=== PATIENT | male | born 1965 | race African-American/Black ===

== ENCOUNTER 2020-08-22 07:25 | Day surgery (SDC) | payer MEDICARE, OTHER ==
--- NOTE | 2020-08-21 08:18 | NUR ---
ATTEMPTED TO CALL PT TO CONFIRM TOMORROW APPT AND ADDRESS HIS SHELLFISH ALLERGY - PT HAS VOICEMAIL THAT HAS NOT BEEN SET UP AT THIS TIME. WILL ATTEMPT TO CONTACT LATER TODAY. CALLED SCHEDULING OFFICE (DR. FRIEDMAN) TO LET THEM KNOW THAT NEED TO PRE-MEDICATE AND LEFT MESSAGE FOR CHARGE NURSE TO CALL ME.
--- NOTE | 2020-08-21 11:04 | NUR ---
1030 - SPOKE WITH SUE TO CONFIRM APPT FOR TOMORROW: CONFIRMED NPO AFTER MIDNIGHT, CONFIRMED APARTMENT LEASING MANAGER, CONFIRMED HE STOPPED HIS ASA ON FRIDAY. PT STATES HE HAS NEVER HAD CONTRAST BEFORE, WILL NEED TO BE PRE-MEDICATED. 1102 - CALLED DR FRIEDMAN'S OFFICE AGAIN AND NURSE FOR PT COULDN'T TALK AT THIS TIME. LEFT MY NAME AND NUMBER TO CALL ME BACK.
--- NOTE | 2020-08-21 11:40 | NUR ---
SPOKE WITH OANH AT [facility] - SHE CALLED IN MEDICATION FOR PT TO PRE-MEDICATE FOR TOMORROW'S PROCEDURE.
[~2020-08-22] VITALS: Ht 180.3 cm; Wt 80.9 kg
--- NOTE | ~2020-08-22 | HEMODYNAMI ---
PATIENT:SUE JANE MEDICAL RECORD: [id number] : 63 LOCATION:[facility] ADMISSION DATE: 08/22/20 Generatedon:111:27 Patient name: SUE JANE Patient #: [id number] SSN: DO B: 1965 Date of study: 08/22/2020 Page: Of Hemodynamic Procedure Report Patient Data Patient Demographics Procedure consent was obtained First Name: SUE Gender: Male Last Name: BUCK : 1965 Middle Initial: ANGELY Age: 54 year(s) Patient #: [id number] Race: Black Additional ID: [id number] Contact details [address]: [address] [place] [address] [address] State: [place] City: [place] Zip code: [address] Admission Admission Data Admission Date: 08/22/2020 Admission Time: 7:25 Procedure Procedure Types Cath Procedure Peripheral Cath Diagnostic Procedure Miscellaneous Procedure Description Procedure Date Procedure Date: 08/22/2020 Procedure Start Time: 10:25 Procedure Staff Name Function Sam Live MD Performing Physician Srinivas Reyes RT Monitor MELVIN COLLIER RT Scrub Stacey Potts RN Nurse Carolee Arevalo RN Nurse Procedure Data Cath Procedure Fluoroscopy Diagnostic fluoroscopy Total fluoroscopy Time: 8.9 time: 8.9 min min Diagnostic fluoroscopy Total fluoroscopy dose: 159 dose: 159 mGy mGy Contrast Material Contrast Material Type Amount (ml) Isovue 300 75 Procedure Medications Medication Administration Route Dosage Lidocaine 1% added to field 20 Heparin Flush Bag added to field 3 bags (1000units/500ml NS) Fentanyl I.V. 50 mcg Versed I.V. 1 mg Heparin Bolus I.V. 3000 units Fentanyl I.V. 25 mcg Versed I.V. 0.5 mg Hemodynamics Rest Heart Rate: 72 (bpm) Snapshots Pre Cath Intra NCS Post Cath Vital Signs Time Heart Resp SPO2 etCO2 NIBP (mmHg) Rhythm Pain Sedation Rate (ipm) (%) (mmHg) Status Level (bpm) 9:54:29 69 29 99 26.7 184/94(156) NSR 0 (11) 10(A) , No pain 9:58:53 70 23 100 23.7 177/99(154) NSR 0 (11) 10(A) , No pain 10:03:16 69 33 100 23 181/94(155) NSR 0 (11) 10(A) , No pain 10:07:40 70 26 100 28.9 187/96(150) NSR 0 (11) 10(A) , No pain 10:12:06 71 27 100 28.2 186/98(161) NSR 0 (11) 10(A) , No pain 10:17:05 68 26 100 25.2 Measuring NSR 0 (11) 10(A) , No pain 10:17:26 76 26 100 26 190/102(162) NSR 0 (11) 10(A) , No pain 10:21:54 70 12 100 32.6 195/108(153) NSR 0 (11) 10(A) , No pain 10:26:25 70 19 100 32.6 192/105(168) NSR 0 (11) 10(A) , No pain 10:30:53 68 15 100 33.4 180/96(154) NSR 0 (11) 8(A) , No pain 10:35:17 68 19 100 27.4 178/92(134) NSR 0 (11) 8(A) , No pain 10:39:43 67 17 100 34.8 169/82(147) NSR 0 (11) 8(A) , No pain 10:44:01 66 23 100 34.8 174/95(146) NSR 0 (11) 8(A) , No pain 10:48:21 66 15 100 34.1 169/97(161) NSR 0 (11) 8(A) , No pain 10:52:41 67 20 100 34.1 174/93(156) NSR 0 (11) 8(A) , No pain 10:57:41 66 17 100 34.1 Measuring NSR 0 (11) 8(A) , No pain 10:57:47 69 14 100 34.1 169/91(140) NSR 0 (11) 8(A) , No pain 11:02:09 69 20 100 34.1 172/83(143) NSR 0 (11) 8(A) , No pain 11:07:08 67 15 100 32.6 Measuring NSR 0 (11) 8(A) , No pain 11:07:12 68 15 100 32.6 172/92(145) NSR 0 (11) 8(A) , No pain 11:11:32 67 15 100 33.4 174/97(149) NSR 0 (11) 8(A) , No pain 11:15:52 66 13 100 34.1 183/94(148) NSR 0 (11) 8(A) , No pain 11:20:19 65 12 100 35.6 171/86(137) NSR 0 (11) 8(A) , No pain 11:24:37 65 20 100 34.1 169/90(141) NSR 0 (11) 8(A) , No pain Medications Time Medication Route Dose Verified Delivered Reason Notes Effec tiveness by by 10:12:17 Lidocaine 1% added 20ml Sam Vargas used for to vial Calos Live MD procedure field MELGAR 10:12:46 Heparin Flush added 3 Sam Vargas used for Bag to bags Calos Live MD procedure (1000units/500ml field MELGAR NS) 10:28:15 Fentanyl I.V. 50 Sam Ibarra for mcg Katlyn Live MD, RN 10:28:26 Versed I.V. 1 mg Sam Ibarra for Katlyn Live MD, RN 10:52:11 Heparin Bolus I.V. 3000 Sam Ibarra used for units Katlyn Live MD RN 11:10:12 Fentanyl I.V. 25 Sam Ibarra for mcg Katlyn Live MD, RN 11:10:22 Versed I.V. 0.5 Sam Ibarra for mg Katlyn Live MD metal expediter Log Time Note 9:48:19 Stacey Potts RN sent for patient. Start room use. 9:48:30 Time tracking: Regular hours (M-F 7:00 - 5:00) 9:48:34 Plan of Care:Hemodynamics will remain stable., Cardiac rhythm will remain stable., Comfort level will be maintained., Respiratory function will remain adequate., Patient/ family verbilizes understanding of procedure., Procedure tolerated without complication., Recovers from procedure without complications.. 9:48:40 Use device set IR Diagnostic 9:48:42 Bag Decanter (2002S) opened to sterile field. 9:48:42 Sterile Angiographic Pack opened to sterile field. 9:48:43 Tegaderm 4 x 4 (1626W) opened to sterile field. 9:48:54 Patient received from Outpatients to IR Alert and oriented. Tansferred to table in Supine position. 9:48:58 Signed procedure consent form obtained from patient. 9:48:59 Correct patient and procedure confirmed by team. 9:50:14 ECG and BP/O2 sat monitors applied to patient. 9:50:15 Full Disclosure recording started 9:50:15 - 9:50:17 Pre-procedure instructions explained to patient. 9:50:18 Pre-op teaching completed and patient verbalized understanding. 9:50:22 H&P Date Dictated: 08/22/2020 H&P Addendum completed by physician on day of procedure. (MUST COMPLETE FOR ALL OUTPATIENTS). 9:50:25 Family unavailable. 9:50:29 Patient NPO since Midnight. 9:50:58 Is patient on blood thinner?No 9:51:05 Patient diabetic? Yes. 9:51:08 If diabetic: On Metformin? No 9:51:14 - 9:51:14 ----Pre-sedation anethsthesia assessment.---- 9:51:23 Previous problem with sedation/anesthesia? No ? 9:51:25 Snore? No 9:51:27 Sleep apnea? No 9:51:29 Deviated septum? No 9:51:30 Opens mouth fully? Yes 9:51:31 Sticks out tongue? Yes 9:51:33 Airway obstruction? No ? 9:51:36 Dentures? No ? 9:51:45 IV patent on arrival in right forearm with 0.9% NaCl at [facility]. 9:51:48 Alarms reviewed by R. N. 9:51:49 Sharps counted by scrub and verified by R.N. 9:51:55 Left Arm area was prepped with chlora-prep and draped in sterile fashio n 9:53:19 Vital chart was started 9:54:29 Baseline sample Acquired. 10:12:17 Lidocaine 1% 20ml vial added to field was administered by Sam Live MD; used for procedure; Verbal order read back and verified. 10:12:46 Heparin Flush Bag (1000units/500ml NS) 3 bags added to field was administered by Sam Live MD; used for procedure; Verbal order read back and verified. 10:24:45 Physician arrived 10::45 --------ALL STOP TIME OUT------ 10:24:46 Final Timeout: patient, procedure, and site verified with staff and physician. All members of the team are in agreement. 10:24:50 Right Arm site verified by team. 10:24:55 Fire Safety Assessment: A--An alcohol-based skin anteseptic being used preoperatively., C--Open oxygen or nitrous oxide is being used. 10:25:04 Sedation plan: IV Moderate Sedation Medication:Versed, Fentanyl 10:25:22 Procedure started. 10:25:28 Local anesthetic to right arm with Lidocaine 1% by Sam Live MD.INITIAL ACCESS ONLY 10:25:31 GLIDE CATHETER 5FR ANGLED 65cm (CG507) opened to sterile field. 10:25:31 DOUBLE ENDED GUIEDWIRE DOC 145CM (I86665) opened to sterile field. 10:28:15 Fentanyl 50 mcg I.V. was administered by Stacey Potts RN; for sedation; Verbal order read back and verified. 10:28:26 Versed 1 mg I.V. was administered by Stacey Potts RN; for sedation; Verbal order read back and verified. 10:35:49 SHEATH 5FR [place] (TVW282) opened to sterile field. 10:35:50 Micropuncture VSI 4FR kit opened to sterile field. 10:36:25 GLIDE WIRE ANGLE 180cm (PB6971) opened to sterile field. 10:36:25 SHEATH 5FR [place] (MQW783) opened to sterile field. 10:37:24 GLIDE WIRE Angled Super Stiff 180cm (CN4347) opened to sterile field. 10:46:55 TORQUE DEVICE PLASTIC .038 ( TD01) opened to sterile field. 10:50:17 SHEATH 6FR X 25CM RADIOPAUQE PINNICALE (RFU626) opened to sterile field . 10:50:42 INFLATOR BasixTOUCH (RY9708) opened to sterile field. 10:52:11 Heparin Bolus 3000 units I.V. was administered by Stacey Potts RN; used for procedure; Verbal order read back and verified. 10:52:57 Inflate balloon Inflation number: 1 A Evercross 6 x 4 x 135 Balloon ([id number]) was prepped and advanced across the Undefined1 , then inflated to 0 YOLIE for 0:00 (min:sec) . 10:57:24 Inflate balloon Inflation number: 2 A Evercross 8 x 4 x 135 Balloon ([id number]) was prepped and advanced across the Undefined1 , then inflated to 0 YOLIE for 0:00 (min:sec) . 11:02:43 Inflate balloon Inflation number: 3 A Evercross 9 x 40 x 135 ([id number]) was prepped and advanced across the Undefined1 , then inflated to 0 YOLIE for 0:00 (min:sec) . 11:06:56 Inflate balloon Inflation number: 4 A CONQUEST 8 x 4 x 75CM balloon ([id number]) was prepped and advanced across the Undefined1 , then inflated to 0 YOLIE for 0:00 (min:sec) . 11:10:12 Fentanyl 25 mcg I.V. was administered by Stacey Potts RN; for sedation; Verbal order read back and verified. 11:10:22 Versed 0.5 mg I.V. was administered by Stacey Potts RN; for sedation; Verbal order read back and verified. 11:13:25 SHEATH 6FR [place] (YLR586) opened to sterile field. 11:20:36 Procedure ended.(Physican Out) 11:21:21 Fluoroscopy time 08.90 minutes. 11:21:29 Fluoroscopy dose: 159 mGy 11:21:29 Flurop Dose total: 159 11:21:34 Contrast amount:Isovue 300 75ml. 11:21:36 Sharps counted by scrub and verified by R.N. 11:21:38 Insertion/operative site no bleeding no hematoma. 11:21:45 Post-op/insertion site Left Fistula dressed using a 4 x 4 and Tegaderm. 11:21:58 Post left arm:stable 11:22:00 Post Procedure Pulses reassessed and unchanged 11:27:02 Post procedure instruction explained to patient.Patient verbalizes understanding. 11:27:03 Procedure and supply charges have been captured, reviewed, submitted an d are correct. 11:27:09 Report given to Outpatients. 11:27:13 Patient transfered to Outpatients with Stretcher. 11:27:42 Vital chart was stopped Intervention Summary Intervention Notes Time ActionType Lesion and Equipment Used Action# Pressure Duration Attributes 10:52:57 Inflate Undefined1 Evercross 6 x 4 1 0 00:00 balloon x 135 Balloon ([id number]) 10:57:24 Inflate Undefined1 Evercross 8 x 4 2 0 00:00 balloon x 135 Balloon ([id number]) 11:02:43 Inflate Undefined1 Evercross 9 x 3 0 00:00 balloon 40 x 135 ([id number]) 11:06:56 Inflate Undefined1 CONQUEST 8 x 4 4 0 00:00 balloon x 75CM balloon ([id number]) Device Usage Item Name Manufacture Quantity Catalog Number Hospital Part Current M inimal Lot# / Charge Number Stock Stock Serial# Code Bag Decanter Microtek 1 [id number] 13065 366147 5 () Medical Inc. Sterile Cardinal 1 [id number] 249098 342697 5 Angiographic Health Pack Tegaderm 4 x 4 3M 1 1626W 674024 626667 668212 5 (1626W) GLIDE CATHETER Terumo 1 CG507 313066 009605 5 5FR ANGLED 65cm (CG507) DOUBLE ENDED Cook Medical 1 [id number] 941880 037604 1 [id number] GUIEDWIRE DOC 145CM (I36064) SHEATH 5FR Terumo 2 EPI930 161789 660976 911092 5 [place] (CCP558) Micropuncture VSI VASCULAR 1 7266V 891520 173190 5 VSI 4FR kit SOLUTIONS GLIDE WIRE Terumo 1 SA1544 015622 730396 920567 5 ANGLE 180cm (KR5316) GLIDE WIRE Terumo 1 DC4171 912036 167065 5 Angled Super Stiff 180cm (IC7458) TORQUE DEVICE Blackwell 1 TD01 243567 875495 665232 5 PLASTIC .038 ( Scientific TD01) SHEATH 6FR X Terumo 1 ZSI863 023401 764996 397998 1 25CM RADIOPAUQE PINNICALE (ZKO444) INFLATOR Merit 1 IB2290 558564 288660 287861 5 Perf[employer]ia [employer] Medical (HT6372) Evercross 6 x 4 Medtronic 1 [id number] 914288 763268 420108 5 x 135 Balloon ([id number]) Evercross 8 x 4 Medtronic 1 [id number] 732135 361220 472030 5 x 135 Balloon ([id number]) Evercross 9 x Medtronic 1 [id number] 242130 667864 952830 5 40 x 135 ([id number]) CONQUEST 8 x 4 Bard 1 XS7083 484953 752002 5 x 75CM balloon (CD5536) SHEATH 6FR Terumo 1 KQV264 898146 899547 346647 4 0 [place] (BST647) Signature Audit [place] Stage Time Signature Unsigned Intra-Procedure 08/22/2020 Srinivas 11:27:36 AM Amy RT (R) (CV) [facility] [address] [place] [place] [address]
[~2020-08-22 07:25] MED LIST: ASPIRIN81 MG PO; CARDURA4 MG PO; COZAAR50 MG PO; LASIX80 MG PO; METOPROLOL TART50 MG PO; NIFEDIPINE ER90 MG PO; PEPCID AC20 MG PO; PHOSLO667 MG PO; RENA-VITE TABL0.8 MG PO; SODIUM BICARBO650 MG PO; TOPROL XL100 MG PO; TRADJENTA5 MG PO; ZYLOPRIM100 MG PO
[2020-08-22 08:14] LABS: BASOPHILS 0.2 % (0-2); EOSINOPHILS 0 % (0-7); HEMATOCRIT 32.1 % (42.0-54.0); HEMOGLOBIN 10.5 g/dL (13.5-17.5); IMMATURE GRANULOCYTES 0.5 % (0-5); LYMPHOCYTE ABS# 0.24 10x3/uL (1.32-3.57); LYMPHOCYTES 5.4 % (15-50); MCH 31.6 pg (26.0-34.0); MCHC 32.7 g/dL (31.0-37.0); MCV 96.7 fL (80.0-100.0); MEAN PLATELET VOLUME 10.8 fL (7.4-10.4); MONOCYTES 2.3 % (2-11); NEUTROPHIL ABS# 4.06 10x3/uL (1.78-5.38); NEUTROPHILS 91.6 % (40-80); RBC 3.32 10x6/uL (4.20-6.10); RDW 13.7 % (11.5-14.5); WBC 4.4 10x3/uL (4.8-10.8)
[2020-08-22 08:20] LABS: ANION GAP 17.4 mmol/L (8-16); CALCIUM 9.1 mg/dL (8.5-10.1); CARBON DIOXIDE 22.3 mmol/L (21.0-32.0); POTASSIUM - SERUM 3.7 mmol/L (3.5-5.1)
[2020-08-22 08:23] LABS: PLATELET COUNT 122 10x3/uL (130-400)
[2020-08-22 09:01] VITALS: BP 191/98; Ht 180.3 cm; Wt 80.9 kg
[2020-08-22 10:13] LABS: INR 1.3 (0.85-1.17)
--- NOTE | 2020-08-22 16:29 | NUR ---
1430 IV DC'ED WITH CATH INTACT. BLEEDING FROM SITE. PRESSURE APPLIED. DRESSING. Rich DANG R.N. 1450 DRESSED. AWAKE & ALERT. GIVEN MED REC, POST ARTERIOGRAM D/C INSTRUCTIONS, & [facility] D/C INSTRUCTIONS. TO PRIVATE CAR PER WHEELCHAIR BY THIS NURSE. HOME WITH DAUGHTER, Montserrat JANE. Rich DANG R.N.
== END 2020-08-22 14:50 | disposition home or self-care (01) ==
LOC: D.SP 07:25 → D.RAD 09:30 → D.SP 09:30 → EDSTATUS 09:30 → D.SP 14:50
PROVIDERS: General Practice; ATTEND Internal Medicine Nephrology
DX: I72.9 Aneurysm of unspecified site (principal); T82.590A Other mechanical complication of surgically created arteriovenous fistula, initial encounter; I10 Essential (primary) hypertension; E11.9 Type 2 diabetes mellitus without complications; I51.9 Heart disease, unspecified